=== PATIENT | male | born 1955 | race Caucasian/White ===

== ENCOUNTER 2018-04-09 02:37 | Inpatient (IN) | payer OTHER ==
[~2018-04-09] VITALS: Ht 162.6 cm; Wt 72.1 kg
[~2018-04-09 02:37] MED LIST: COLAZAL750 MG PO; PURINETHOL PO
--- NOTE | 2018-04-09 17:12 | Operative Report ---
Operative/Inv Procedure Report Surgery Date: 04/09/18 Name of Procedure: 1. Robotic low anterior resection with colon to low rectal anastomosis 2. 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 Rectosigmoid stitch fontaine distal margin 2. Additional distal margin/re-resected rectum stitch fontaine distal staple line 3. Stapler donut as most distal margin Complications: None Condition: Good Operative Indication: This is a 63-year-old gentleman with long-standing ulcerative colitis. He was recently found to have tumor at his rectosigmoid during surveillance exam. This was biopsy-proven to be an adenocarcinoma. Metastatic workup was performed and was negative. Initially both his GI doctor and I recommended total proctocolectomy because of his long-standing history of ulcerative colitis with distal history of dysplasia. 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 Patient refused to have stoma. So after careful discussion with the patient myself and GI we all decided to proceed with just segmental resection. During his preop counseling the patient was educated regarding the need to continue his ulcerative colitis medicine, his significant increase in risk for a second colon cancer, his increased risk of anastomotic failure and his ongoing need for aggressive surveillance with annual colonoscopy Operative/Procedure Note Note: On the day before his procedure the patient did a bowel prep at home including oral laxatives and oral antibiotics. On the morning of his procedure the patient drank 12 ounces of apple juice prior to coming to the hospital The patient presented to [facility] and received the routine ERAS premedications. Patient was taken to the operating room placed in the supine position on the operating room table. He underwent induction of general anesthesia and placement of both endotracheal tube and Walsh catheter. At this point the anesthesia team did a bilateral TAP block. After the block was completed the patient was converted to lithotomy position in [facility]. Patient was secured to the bed with both arms tucked. We gained access to the abdominal cavity using a Veress needle technique. The Veress needle was inserted in the midclavicular line subcostal on the left. The abdomen was insufflated to 15 mmHg. The robotic ports were then placed in the standard fashion. Laparoscopic expiration of the abdominal cavity revealed a very prominent tattoo at the rectosigmoid. No other pathology was noted in the liver appeared normal. The patient was placed in Trendelenburg with right side down and then the robot was docked. I begin a medial to lateral dissection by grasping the rectosigmoid and holding it anterior. I incised the peritoneum at the sacral promontory to the right of rectosigmoid and enter the posterior avascular space of the rectum. I did a medial to lateral dissection until the iliac artery and vein were identified on the left as well as the left ureter. With some additional dissection I was also able to identify the left gonadal blood vessels. I continued to mobilize the rectum and the posterior avascular space until I was to the lower portion of the rectum. Next the inferior mesenteric vascular pedicle was identified. The blood vessels were skeletonized. I then divided the pedicle distal to the takeoff of the left colic artery with a robotic vascular 45 mm stapler. I took down the white line of Toldt's to approximately the mid descending colon. Patient had a very redundant sigmoid so I had plenty of length for anastomosis. I chose my distal site of transection comfortably beyond the visible tattoo. The mesorectum was divided at the junction of the upper and middle third of the rectum using a combination of electrocautery and robotic vessel sealer. Once the rectal wall was well exposed the robotic 45 mm blue ANOOP stapler was used to transect the bowel. At this point the pneumoperitoneum was let down. A 4 cm Pfannenstiel incision was created. A wound protector was placed through this incision. The transected bowel was easily pulled through the incision. I chose my proximal site of transection. The mesentery was cleared here both with electrocautery and larger bundles of tissue were ligated with 2-0 Vicryl suture. I sharply divided the bowel and the specimen was removed from the field. A handsewn pursestring was performed with 2-0 Prolene suture. A 28 EEA stapler was chosen for the anastomosis. The head of the anvil was placed into the lumen of the bowel and pursestring was tied snugly around the PEG of the anvil. While palpating the specimen I felt that the tumor was close to the distal staple line despite the staple line being far beyond the visible tattoo. The specimen was opened on the back table. And the tumor came to within 1 cm of distal staple line. I was not pleased with this distal margin so I decided to resect some additional rectum. Pneumoperitoneum was reestablished. I mobilized the rectum further dividing the lateral stalks until I was in the low part of the rectum. About 2-1/2-3 cm of additional rectum were resected first by dividing the mesorectum with the vessel sealer. Once again a robotic ANOOP 45 mm blue stapler was used to transect the bowel. The pneumoperitoneum was let down and this additional portion of the rectum was removed. A stitch was placed along the distal staple line. The Was placed back on the wound protector and the abdomen was reinsufflated to this 15 mm of Mercury. The EEA sizers and then the EEA stapler passed transanally. When the staple was appropriately positioned the spike was advanced. The spike emerged right in the middle of the ANOOP staple line just behind the staple line. I was very pleased with positioning. The 2 ends of the stapler were mated and the stapler was completely closed and allowed to settle. We inspected the colon to make sure there was no twisting of the bowel or the mesentery. Stapler was armed fired opened retrieved. The pelvis then was filled with sterile saline the bowel was gently occluded above the staple line. A rigid sigmoidoscopy was performed there was no air bubbling from the anastomosis. I had to excellent stapler donuts on the stapling device. The anastomosis was now at the junction of the mid and low rectum. The rectal stapler donut was sent as most distal margin The fluid was aspirated out of the pelvis. The ports removed under direct visualization of the laparoscope. The Pfannenstiel incision was closed in layers. The peritoneum was closed with running 2-0 Vicryl suture and the fascia was closed with running 0 PDS suture. The subcu tissue was copiously irrigated at this incision and then the skin was closed with skin ace. The right lower quadrant 12 mm port fascia was closed with a [id number] 0 Vicryl. All the port incisions were then closed with subcuticular 4-0 Monocryl and skin. At this point procedure was concluded. The patient tolerated the procedure well , patient was converted to supine, the patient was activated in the operating room. The patient was taken to the recovery area in good condition. At the end of this operation all needle sponges and instruments were accounted for. Findings: Tumor in upper rectum Discharge Disposition: Same Day Admissions CC: Harrison BISHOP,Gurdeep
--- NOTE | 2018-04-09 17:14 | Patient Discharge Instructions ---
Discharge Instructions General Discharge Information You were seen/treated for: SIGMOID COLON CA You had these procedures: ROBOTIC LOW ANTERIOR RESECTION Watch for these problems: FEVERS OR CHILLS, WORSENING ABDOMINAL PAIN, NAUSEA AND VOMTING Call Surgeon to remove: WOUND CHECK Do not soak the wound: No Daily wet to dry dressings: No No bath, but you may shower: Yes Other wound care: KEEP WOUND CLEAN AND DRY Special Instructions: CALL OFFICE IF YOU SEE WOUND DRAINAGE OR REDNESS Diet Continue normal diet: Yes Recommended Diet: Low Residue Activity Full Activity/No Limits: No Activity Self Limited: Yes Acute Coronary Syndrome Inclusion Criteria At DC or during hospital stay patient has or had the following: ACS DIAGNOSIS No Discharge Core Measures Meds if any: Prescribed or Continued at Discharge Meds if any: NOT Prescribed or Continued at Discharge Congestive Heart Failure Inclusion Criteria At DC or during hospital stay patient has or had the following: CHF DIAGNOSIS No Discharge Core Measures Meds if any: Prescribed or Continued at Discharge Meds if any: NOT Prescribed or Continued at Discharge Cerebrovascular accident Inclusion Criteria At DC or during hospital stay patient has or had the following: CVA/TIA Diagnosis No Discharge Core Measures Meds if any: Prescribed or Continued at Discharge Meds if any: NOT Prescribed or Continued at Discharge Venous thromboembolism Inclusion Criteria VTE Diagnosis No VTE Type NONE VTE Confirmed by (Test) NONE Discharge Core Measures - Per Current guidelines, there needs to be overlap - treatment for the first 5 days of Warfarin therapy. - If discharged on Warfarin prior to 5 days of - overlap therapy, the patient will need to be - assessed for post discharge needs including - *Post discharge parental anticoagulation - *Warfarin and/or parental anticoagulation education - *Follow up date to check INR post discharge At least 5 days overlap therapy as Inpatient No Meds if any: Prescribed or Continued at Discharge Note: Overlap Therapy is Warfarin and Anticoagulant Meds if any: NOT Prescribed or Continued at Discharge
--- NOTE | 2018-04-09 17:16 | Surgical Discharge Summary ---
Visit Information Visit Dates Admission Date: 04/09/18 Discharge Date: 04/11/18 History of Present Illness Chief Complaint: SIGMOID COLON ULCERATIVE LESION Medical History Blood Transfusion Hx: No Surgical History Pertinent Surgical History: Robotic LAR Review of Systems: Refer to H&P Hospital Course Course Attending Physician: Lavell Burt Jr., DO Primary Care Physician: Morgan Rosenthal MD Hospital Course: 63 Y/O MALE WITH PMHX SIG FOR ULCERATIVE COLITIS UNDERWENT A ROBOTIC LAR FOR SIGMOID ULCERATION POSITIVE FOR ADENOCARCINOMA. HE TOLERATED THE PROCEDURE WELL AND WAS STARTED ON THE ERAS PROTOCAL. THROUGHOUT HIS HOSPITAL STAY HIS VITAL SIGNS HAVE REMAINED STABLE AND HE HAS BEEN AFEBRILE. HE TOLARATED PROGRESSION OF HIS DIET, VOIDED AND HAD RETURN OF BOWEL FUNCTION PRIOR TO D/C HOME. HE LEAVES [facility] IN STABLE CONDITION WITH ALL QUESTIONS ANSWERED AND FOLLOW-UP ARRANGED Complications: NONE Allergies: Coded Allergies: No Known Allergies (04/06/18) Significant Procedures: ROBOTIC LAR Disposition Summary Disposition Principal Diagnosis: SIGMOID ADENOCARCINOMA Additional Diagnosis: NONE Discharge Disposition: home or self care Discharge Instructions General Discharge Information Code Status: Full Code Patient's Diet: LOW RESIDUAL DIET Patient's Activity: SELF LIMITED Follow-Up Instructions/Appts: CALL OFFICE FOR APPOINTMENT IN 2 WEEKS Medications at Discharge Discharge Medications: Continue taking these medications: Balsalazide (Colazal) 750 MG CAPSULE 3 Tablet ORAL THREE TIMES DAILY [PURINETHOL] 50 Milligram ORAL DAILY Start taking the following new medications: Acetaminophen (Tylenol) 325 MG TABLET 1-2 Tablet ORAL EVERY 4-6 HOURS NEEDED as needed for PAIN Qty = 20 No Refills Instructions: DO NOT EXCEED 4G OF TYLENOL DAILY Copies To: Lavell Burt Jr., DO
[2018-04-09 18:45] VITALS: BP 108/64
--- NOTE | 2018-04-09 19:58 | PN- General Surgery ---
Subjective Subjective: POC sleepy, nauseous earliet but better after meds. no vomiting. no cp/sob. no oob. +uo via ronquillo. taking sips of water Objective Vital Signs and I&Os Vital Signs Date Time Temp Pulse Resp B/P B/P Pulse O2 O2 Flow FiO2 Mean Ox Delivery Rate 04/095 98.3 54 16 108/64 96 Room Air Physical Exam: gen- nad card- s1s2 pulm- ctab abd- incisions cdi w skin glue, pelvic incision w cdi dressing, soft, nondistended, ttp ext- calves soft nt, alps on bl ronquillo- clear urine in bag, >300 Assessment/Plan Assessment/Plan A- POD0 sp robo LAR for recto-sigmoid mass, stable with improved postop nausea. P- ERAS protocol prn pain meds, nonnarcotic encouraged clrs, fulls in am if ok oob, ambulate entereg until bm hep sq, alps i&os dc ronquillo in am dc planning Core Measures Venous Thromboembolism VTE Risk Factors Surgery No Mechanical VTE Prophylaxis d/t N/A MechProphylax Ordered No VTE Pharm Prophylaxis d/t NA PharmProphylax ordered
[2018-04-09 23:35] VITALS: BP 110/57
--- NOTE | 2018-04-10 07:26 | PN- General Surgery ---
See Addendum Subjective Subjective: Patient reports pain well controlled with Tylenol. Tolerating water, denies drinking clears. Denies nausea, vomiting, bleching, flatus or BM. No ovenight events. 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 no signs of infection, pelvic dressing c/d/i, faint bs, nontender, no rebound or guarding - ronquillo in place with clear urine, 1L overnight Current Medications: Current Medications Sig/Diana Start time Last Medication Dose Route Stop Time Status Admin Acetaminophen 1,000 MG Q8 04/09 2200 CAN PO Acetaminophen 1,000 MG Q8 04/09 2200 AC 04/10 PO 0556 Acetaminophen 1,000 MG Q6 04/09 1800 DC PO Acetaminophen 1,000 MG .STK-MED ONE 04/09 1714 DC IV 04/09 1715 Acetaminophen 0 .STK-MED ONE 04/09 1028 DC PO Acetaminophen 1,000 MG ONCE 04/09 0000 DC PO 04/09 2359 Alvimopan 12 MG BID 04/09 2100 AC 04/10 PO 0746 Alvimopan 12 MG ONCE 04/09 0000 DC PO 04/09 2359 Cefazolin Sodium 2,000 MG ONCE 04/09 0000 DC IV 04/09 2359 Celecoxib 100 MG ONCE ONE 04/09 1700 DC PO 04/09 1701 Dextrose/Sodium 1,000 ML .Q10H 04/09 1645 AC 04/10 Chloride IV 0339 Gabapentin 300 MG Q8 04/09 2200 AC 04/10 PO 0556 Gabapentin 0 .STK-MED ONE 04/09 1029 DC PO Gabapentin 600 MG ONCE 04/09 0000 DC PO 04/09 2359 Heparin Sodium 5,000 UNIT Q8 04/09 2200 AC 04/10 (Porcine) SC 0556 Heparin Sodium 0 .STK-MED ONE 04/09 1029 DC (Porcine) .ROUTE Heparin Sodium 5,000 UNIT ONCE 04/09 0000 DC (Porcine) SC 04/09 2359 Hydromorphone HCl 2 MG .STK-MED ONE 04/09 1738 DC IM 04/09 1739 Hydromorphone HCl 2 MG .STK-MED ONE 04/09 1728 DC IM 04/09 1729 Hydromorphone HCl 2 MG .STK-MED ONE 04/09 1708 DC IM 04/09 1709 Hydromorphone HCl 2 MG .STK-MED ONE 04/09 1659 DC IM 04/09 1700 Metronidazole 500 MG ONCE 04/09 0000 DC Sodium Chloride 100 ML IV 04/09 2359 Ondansetron HCl 4 MG Q6P PRN 04/09 1900 AC 04/09 IV 1923 Oxycodone HCl 5 MG Q6P PRN 04/09 1700 AC PO Oxycodone HCl 10 MG Q4P PRN 04/09 1700 AC 04/09 PO 1923 Promethazine HCl 25 MG Q6-PRN PRN 04/09 1900 AC IV 04/16 1859 Scopolamine HBr 0 .STK-MED ONE 04/09 1028 DC TOP Scopolamine HBr 1 PAT ONCE 04/09 0000 DC TOP 04/09 2359 Tramadol HCl 50 MG Q6P PRN 04/09 1700 AC PO Tramadol HCl 100 MG Q6-PRN PRN 04/09 1700 AC PO Results Last 48 Hours of Labs: Laboratory Tests 04/10 0700 Chemistry Sodium Pending Potassium Pending Chloride Pending Carbon Dioxide Pending Anion Gap Pending BUN Pending Creatinine Pending BUN/Creatinine Ratio Pending Hematology CBC w Diff Pending WBC Pending RBC Pending Hgb Pending Hct Pending MCV Pending MCH Pending MCHC Pending RDW Pending Plt Count Pending MPV Pending Assessment/Plan Assessment/Plan 63 M POD 1 s/p robotic LAR for recto-sigmoid mass, recovering well Advance to fulls for breakfast D/c IVF ERAS protocol Entereg until bm DVT ppx - alps, hsq OOB, ambulate D/c ronquillo Anticipate d/c within 24-48 hours D/w Dr. Aversa Core Measures Venous Thromboembolism VTE Risk Factors Surgery No Mechanical VTE Prophylaxis d/t N/A MechProphylax Ordered No VTE Pharm Prophylaxis d/t NA PharmProphylax ordered
[2018-04-10 08:08] VITALS: BP 108/56
[2018-04-10 08:55] LABS: ABSOLUTE BASOPHIL COUNT 0 /CUMM (0.0-0.2); ABSOLUTE EOSINOPHIL COUNT 0 /CUMM (0.0-0.7); ABSOLUTE GRANULOCYTE CT 9.4 /CUMM (1.4-6.5); ABSOLUTE LYMPH COUNT 1.1 /CUMM (1.2-3.4); ABSOLUTE MONOCYTE COUNT 1.1 /CUMM (0.10-0.60); BASOPHIL % 0.4 % (0.0-2.0); EOSINOPHIL % 0.1 % (0-5); GRANULOCYTE % 81.1 % (42.2-75.2); HEMATOCRIT 38.6 % (42-52); MEAN CORPUSCULAR HGB 28.2 PG (27.0-31.0); MEAN CORPUSCULAR HGB CONC 33.1 G/DL (33.0-37.0); MEAN CORPUSCULAR VOLUME 85.1 FL (80.0-94.0); MEAN PLATELET VOLUME 11.6 FL (7.4-10.4); PLATELET COUNT 183 /CUMM (130-400); RBC DISTRIBUTION WIDTH 16.9 % (11.5-14.5); RED BLOOD CELL CT 4.53 /CUMM (4.70-6.10); WHITE BLOOD CELL COUNT 11.6 /CUMM (4.8-10.8)
[2018-04-10 11:00] VITALS: BP 111/49
[2018-04-10 15:01] VITALS: BP 110/58
[2018-04-10 19:03] VITALS: BP 118/60
[2018-04-10 22:29] VITALS: BP 108/55
[2018-04-11 07:09] VITALS: BP 126/80
--- NOTE | 2018-04-11 07:24 | PN- General Surgery ---
Subjective Subjective: Patient reports pain controlled. Requesting to take Tylenol, instead of narcotics when hes discharged. Tolerating a low fiber diet without nausea or vomiting. Reports passing flatus and had a BM, which was blood tinged this morning. Offers no other complaints. Objective Vital Signs and I&Os Vital Signs Date Time Temp Pulse Resp B/P B/P Pulse O2 O2 Flow FiO2 Mean Ox Delivery Rate 04/10 2229 98.4 55 16 108/55 95 Room Air 04/10 1903 98.6 52 18 118/60 94 Room Air 04/10 1600 Room Air 04/10 1501 99.0 53 16 110/58 94 Room Air 04/10 1313 60 04/10 1100 99.5 50 16 111/49 96 Room Air 04/10 0808 99.1 47 20 108/56 97 Room Air Intake & Output 04/11 0800 04/11 0000 04/10 1600 04/10 0804/10 0000 04/09 1600 Intake Total 850 900 920 640 Output Total 1625 Balance 850 -725 920 640 Intake, IV 100 800 400 Intake, Oral 850 800 120 240 Number 0 Bowel Movements Output, Urine 1625 Patient 159 lb 154 lb Weight Physical Exam: Gen - nad Cardiac - S1S2 noted Lungs - CTAB Abd - soft, mild distended, +bs, incisions healing well with no signs of infection, phaniseal incisions closed with ace, no signs of infection, left anni, appropriately tender destini-incisionally, no rebound or guarding noted Ext - no edema or calf pain, alps in place Current Medications: Current Medications Sig/Diana Start time Last Medication Dose Route Stop Time Status Admin Acetaminophen 1,000 MG Q8 04/09 2200 AC 04/11 PO 0629 Alvimopan 12 MG BID 04/09 2100 AC 04/10 PO 2106 Balsalazide 2,250 MG TID 04/10 1645 AC 04/10 PO 2224 Dextrose/Sodium 1,000 ML .Q10H 04/09 1645 DC 04/10 Chloride IV 0339 Gabapentin 300 MG Q8 04/09 220 AC 04/11 PO 0629 Heparin Sodium 5,000 UNIT Q8 04/09 220 AC 04/11 (Porcine) SC 0629 Ondansetron HCl 4 MG Q6P PRN 04/09 1900 AC 04/09 IV 1923 Oxycodone HCl 5 MG Q6P PRN 04/09 1700 AC PO Oxycodone HCl 10 MG Q4P PRN 04/09 1700 AC 04/09 PO 1923 Patient Medication 1 ED ONE ONE 04/10 1615 DC 04/10 [facility] ED 04/10 1616 1807 Promethazine HCl 25 MG Q6-PRN PRN 04/09 1900 AC IV 04/16 1859 Tramadol HCl 50 MG Q6P PRN 04/09 1700 AC PO Tramadol HCl 100 MG Q6-PRN PRN 04/09 1700 AC PO Results Last 48 Hours of Labs: Laboratory Tests 04/10 0700 Chemistry Sodium (137 - 145 mmol/L) 140 Potassium (3.5 - 5.1 mmol/L) 4.0 Chloride (98 - 107 mmol/L) 105 Carbon Dioxide (22 - 30 mmol/L) 25 Anion Gap (5 - 16) 10 BUN (9 - 20 mg/dL) 13 Creatinine (0.7 - 1.2 mg/dL) 0.6 L Estimated GFR (>60 ml/min) > 60 BUN/Creatinine Ratio (7 - 25 %) 21.7 Hematology CBC w Diff NO MAN DIFF REQ WBC (4.8 - 10.8 /CUMM) 11.6 H RBC (4.70 - 6.10 /CUMM) 4.53 L Hgb (14.0 - 18.0 G/DL) 12.8 L Hct (42 - 52 %) 38.6 L MCV (80.0 - 94.0 FL) 85.1 MCH (27.0 - 31.0 PG) 28.2 MCHC (33.0 - 37.0 G/DL) 33.1 RDW (11.5 - 14.5 %) 16.9 H Plt Count (130 - 400 /CUMM) 183 MPV (7.4 - 10.4 FL) 11.6 H Gran % (42.2 - 75.2 %) 81.1 H Lymphocytes % (20.5 - 51.1 %) 9.2 L Monocytes % (1.7 - 9.3 %) 9.2 Eosinophils % (0 - 5 %) 0.1 Basophils % (0.0 - 2.0 %) 0.4 Absolute Granulocytes (1.4 - 6.5 /CUMM) 9.4 H Absolute Lymphocytes (1.2 - 3.4 /CUMM) 1.1 L Absolute Monocytes (0.10 - 0.60 /CUMM) 1.1 H Absolute Eosinophils (0.0 - 0.7 /CUMM) 0 Absolute Basophils (0.0 - 0.2 /CUMM) 0 Assessment/Plan Assessment/Plan 63 M POD 2 s/p robotic LAR for recto-sigmoid mass, recovering well with return of bowel function, stable for discharge Cont low fiber diet ERAS protocol Resume home meds D/c Entereg DVT ppx - alps, hsq OOB, ambulate D/c today D/w Dr. Burt Core Measures Venous Thromboembolism VTE Risk Factors Surgery No Mechanical VTE Prophylaxis d/t N/A MechProphylax Ordered No VTE Pharm Prophylaxis d/t NA PharmProphylax ordered
[2018-04-11] MEDS ORDERED: TYLENOL325 M1 PO (07:46)
== END 2018-04-11 10:03 | DRG 331 ==
LOC: SDA 02:37 → ENRESERV 16:58 → ENTRNSPT 17:59 → EDTRNSPTSTS 18:19 → EDTRNSPT 18:19 → 2NB 18:20 → CMPTRNSPT 18:39 → ENPENDDIS 04-11 08:09 → 2NB 04-11 10:03
PROVIDERS: Physician Assistant
PROC: 3E0T3BZ Introduction of Anesthetic Agent into Peripheral Nerves and Plexi, Percutaneous Approach (ICD-10-PCS; principal; 2018-04-09)
PROC: 0DTN4ZZ Resection of Sigmoid Colon, Percutaneous Endoscopic Approach (ICD-10-PCS; principal; 2018-04-09)
DX: C20 Malignant neoplasm of rectum (principal)
CPT/HCPCS: 2NBSP; 36415; 36592; 82436; 87086; J0131; J0690; J1100; J1644; J2405; J2550; J3490; S0108